=== PATIENT | male | born 1965 | race Caucasian/White ===

== ENCOUNTER 2022-01-10 14:03 | Outpatient (AMB) | payer BC, SELFPAY ==
--- NOTE | 2022-01-10 14:11 | U.OPVIS1 ---
Intake Vital Signs 01/10/22 14:12 Height 1.78 m Weight 137.042 kg BMI 43.3 BP 139/82 H Blood Pressure Location Left Upper Arm Position Sitting Pulse 87 Pulse Source Monitor Temp 97.6 F Temp Source Temporal Artery Scan Intake Visit Reasons: Uro Uroflow and Bladder Scan Television Journalist Required: No Is patient in pain?: No Allergy Allergies hydrocodone Allergy (Severe, Verified 01/10/22 14:12) SWELLING, ITCHING, PSYCHOTIC Office Procedures Uro Bladder Scan and Uro Flow My Supervising Practitioner for this visit is:: Cesario Ortiz Bladder Scan and Uro Flow Completed?: Yes Diagnosis: BPH WITH LUTS N40.1 SLOW STREAM R39.12 Uro Level of Care Nursing/Assessment/Reassessment Patient Status: Established Patient Nursing Assessment/Reassessment: Update [facility] data in EMR, Vital Signs and Medication Reconciliation Coordination of Care: Comp Pt/Fam Ed for care Established Patient Point Assignment: 50 Procedure IM Injection: No Transrectal Ultrasound: No
[2022-01-10 14:12] VITALS: BP 139/82; PULSE 87; TEMP 36.4; BMI 43.3
== END 2022-01-10 14:15 | disposition home or self-care (01) ==
LOC: HODURO 14:03
PROVIDERS: PCP Physician Assistant Medical; Visit Provider Urology

== ENCOUNTER → 2024-10-16 | Outpatient (CLI) | payer BC, SELFPAY ==
[2024-10-16 08:42] LABS: Glucose Estimated Average 114 mg/dL (80-131); Hemoglobin A1C 5.6 % Hgb (4.8-6.0)
[2024-10-16 08:54] LABS: Anion Gap 0 (7-16); BUN/Creatinine Ratio 15 Ratio (12-20); Blood Urea Nitrogen 15 mg/dL (9-23); Calcium 9.7 mg/dL (8.3-10.6); Carbon Dioxide 31.3 mMol/L (20.0-31.0); Chloride 105 mMol/L (98-107); Glucose 94 mg/dL (74-106); Osmolality,Calculated 272 (275-295); Potassium 4.6 mMol/L (3.4-5.1); Sodium 136 mMol/L (136-145); eGFR > 60 See Note
== END | disposition home or self-care (01) ==
PROVIDERS: PCP Family Medicine; Referring Provider Nurse Practitioner Family; Visit Provider Nurse Practitioner Family
DX: I10 Essential (primary) hypertension (principal); E11.40 Type 2 diabetes mellitus with diabetic neuropathy, unspecified
CPT/HCPCS: 36415; 80048; 83036

== ENCOUNTER → 2025-07-14 | Outpatient (CLI) | payer BC, SELFPAY ==
[2025-07-14 08:52] LABS: Glucose Estimated Average 123 mg/dL (80-131); Hemoglobin A1C 5.9 % Hgb (4.8-6.0)
[2025-07-14 08:56] LABS: Basophils # (Auto) 0.1 Thou/mm3 (0.0-0.2); Basophils % (Auto) 1 % (0-2.5); Eosinophils # (Auto) 0.3 Thou/mm3 (0.0-0.5); Eosinophils % (Auto) 3 % (0-10); Hematocrit 47.2 % (41.0-53.0); Hemoglobin 15.8 g/dL (13.5-16.0); Immature Granulocytes Auto 0.03 Thou/mm3 (0.00-0.00); Lymphocytes # (Auto) 2.9 Thou/mm3 (1.0-4.8); Lymphocytes % (Auto) 32 % (10-50); Mean Corpuscular HGB Conc 33.5 g/dl (31.0-37.0); Mean Corpuscular Hemoglobin 33.9 pg (25.0-35.0); Mean Corpuscular Volume 101 fL (80-100); Monocytes # (Auto) 0.8 Thou/mm3 (0.0-0.8); Monocytes % (Auto) 8 % (0-12); Neutrophils # (Auto) 5.2 Thou/mm3 (1.8-7.7); Neutrophils % (Auto) 56 % (37-80); Nucleated Red Blood Cell # 0.00 Thou/mm3 (0.00-0.00); Nucleated Red Blood Cell % 0 /100 WBC (0); Platelet Count 242 Thou/mm3 (140-440); RDW Standard Deviation 47.6 fL (35.1-43.9); Red Blood Count 4.66 Miln/mm3 (4.50-5.90); White Blood Count 9.3 Thou/mm3 (3.8-10.6)
[2025-07-14 09:02] LABS: Creatinine MALB Rnd Ur 127 mg/dL (30-125); Microalbumin, Random Urine < 3 mg/L (0-300)
[2025-07-14 09:14] LABS: Prostate Specific Antigen 1.69 ng/mL (0-4.00)
[2025-07-14 09:22] LABS: Alanine Aminotransferase 25 U/L (10-49); Albumin, Serum 4.4 gm/dL (3.4-4.8); Albumin/Globulin Ratio 1.9 (1.2-2.2); Alkaline Phosphatase 69 U/L (46-116); Anion Gap 9 (7-16); Aspartate Amino Transferase 21 U/L (0-34); BUN/Creatinine Ratio 10 Ratio (12-20); Bilirubin,Total 0.5 mg/dL (0.3-1.2); Blood Urea Nitrogen 11 mg/dL (9-23); Calcium 9.8 mg/dL (8.3-10.6); Calcium (Corrected) 9.8 mg/dL (8.5-10.1); Carbon Dioxide 29.1 mMol/L (20.0-31.0); Cardiac Risk Estimate 4.3 RATIO (4.0-6.7); Chloride 104 mMol/L (98-107); Cholesterol 147 mg/dL (132-200); Creatinine (Component) 1.1 mg/dL (0.6-1.3); Globulin 2.3 gm/dL (2.3-3.5); Glucose 104 mg/dL (74-106); HDL Cholesterol 34 mg/dL (40-60); LDL Cholesterol,Calculated 62 mg/dL (0-130); Osmolality,Calculated 282 (275-295); Potassium 4.5 mMol/L (3.4-5.1); Sodium 142 mMol/L (136-145); Thyroid Stimulating Hormone 1.11 uIU/mL (0.55-4.78); Total Protein 6.7 gm/dL (5.7-8.2); Triglycerides 256 mg/dL (30-150); eGFR > 60 See Note
== END | disposition home or self-care (01) ==
LOC: COPL 07:08
PROVIDERS: PCP Family Medicine; Referring Provider Nurse Practitioner Family; Visit Provider Nurse Practitioner Family
DX: Z00.00 Encounter for general adult medical examination without abnormal findings (principal); E11.40 Type 2 diabetes mellitus with diabetic neuropathy, unspecified; I10 Essential (primary) hypertension; E78.2 Mixed hyperlipidemia
CPT/HCPCS: 36415; 80053; 80061; 82043; 82570; 83036; 84153; 84443; 85025